=== PATIENT | female | born 1940 | race Caucasian/White ===

== ENCOUNTER → 2020-11-17 14:47 | Outpatient (CLI) | payer OTHER, SELFPAY ==
--- NOTE | ~2020-11-17 | XR_ITS ---
EXAMINATION: XR ribs RT 2V EXAM DATE: 11/17/2020 15:46 INDICATION: Right rib pain posteriorly 6-7 weeks. No known recent injury. TECHNIQUE: Frontal projection of the upper right ribs, frontal projection of the lower right ribs, ob lique projection of the right ribs, without chest x-ray(s) for interpretation. There is no prior beatris dy for comparison. FINDINGS: Right 10th and 11th rib fractures posteriorly, probably subacute. There is no soft tissue a bnormality seen. Mild right shoulder osteoarthritis. IMPRESSION: Right 10th, 11th rib fractures posteriorly probably subacute. Reviewed, dictated and finalized at location A.
--- NOTE | ~2020-11-17 | XR_ITS ---
EXAMINATION: XR lumbar spine 2-3V EXAM DATE: 11/17/2020 15:46 INDICATION: Low back pain. TECHNIQUE: Lumber spine frontal, lateral, lateral L5-S1 projections for interpretation. There is no prior study for comparison. FINDINGS: There is mild to moderate thoracic dextroscoliosis. There is 2 to 3 mm anterolisthesis L4 on L5 and L5 on S1. There is moderate to severe L5-S1 facet arthropathy, moderate at the mid lumbar l evels. There is moderate disc disease L2-3, mild to moderate at L3-4 and mild at the other lumbar lev els. There is mild aortic arterial sclerosis. There are no acute fractures identified. Paraspinal sof t tissue is unremarkable. Sacrum, sacroiliac joints, sacral arcuate lines are intact. IMPRESSION: 1. L5-S1 moderate to severe facet arthropathy. 2. L2-3 moderate disc disease. 3. Less spondylosis other levels. Reviewed, dictated and finalized at location A.
--- NOTE | ~2020-11-17 | XR_ITS ---
EXAMINATION: XR thoracic spine 2V EXAM DATE: 11/17/2020 15:44 INDICATION: Thoracic, right lower rib pain. Symptoms 6-7 weeks TECHNIQUE: Frontal and lateral projections of the thoracic spine as well as lateral swimmers projecti on of the upper thoracic spine for interpretation. There is no prior study for comparison. FINDINGS: There are small lower thoracic endplate osteophytes. The vertebral bodies are aligned in t he AP dimension. Vertebral body and disc heights are well-maintained. There are no bony erosions iden tified. Right 10th and 11th rib fractures posteriorly probably subacute. There are no acute thoracic fractures identified. IMPRESSION: 1. Right 10th, 11th rib fractures posteriorly, probably subacute. 2. Small lower thoracic osteophytes. Reviewed, dictated and finalized at location A.
== END ==
PROVIDERS: PCP Internal Medicine; Visit Provider Nurse Practitioner Family
DX: M51.36 Other intervertebral disc degeneration, lumbar region (principal); M47.894 Other spondylosis, thoracic region; S22.41XA Multiple fractures of ribs, right side, initial encounter for closed fracture; X58.XXXA Exposure to other specified factors, initial encounter
CPT/HCPCS: 71100; 72070; 72100